=== PATIENT | female | born 1940 ===

== ENCOUNTER 2019-03-31 15:44 | Emergency (ER) | payer MEDICARE ==
[2019-03-31] MEDS ORDERED: Tramadol 25 mg PO STA (16:21)
[2019-03-31] MEDS ORDERED: Lidocaine 5% Patch TD STA (16:21)
--- NOTE | 2019-03-31 16:24 | C.PDOC ---
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 Patient reports that she accidentally slipped and fell. She states she hit the edge of her furniture with her right mid-back. Patient was non-compliant with walker when she tries to get up from chair to walk. Patient was immediately assisted up by family. 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 Patient describes the pain as localized and worse with movement. She denies any other injuries, head injury, headache, chest pain/impact, abdominal pain/impact, weakness, or numbness. 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 ACCID SLIP AND FALL, STRUCK EDGE OF FURNITURE R MID BACK. PT WAS NONCOMPLIANT W WALKER WHEN TRIED TO GET UP FROM CHAIR TO WALK. NO OTHER INJURY, IMMEDIATELY ASSISTED UP BY FAMILY. 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 PAIN LOCALIZED WORSE W MOVEMENT. EXAM MOD DIST NONTOXIC HEENT ATRAUM BACK +DIFF TEND R MID BACK NO FOCAL BONY TEND, CREPITUS SKIN ERYTHEMA MIN BRUISING R MID BACK INTACT NEURO INTACT LUNGS CTA B/L NO W/R/R REMAINDER NEG MDM BACK TRAUMA RO FX. PAIN RX, XRAY Time Seen by Provider: 03/31/19 16:18 Chief Complaint (Nursing): Trauma History Per: Patient, Family History/Exam Limitations: no limitations Onset/Duration Of Symptoms: Hrs Current Symptoms Are (Timing): Still Present Quality Of Discomfort: "Pain" Previous Symptoms: Chronic Pain (back pain ) Associated Symptoms: denies: New Weakness, New Numbness Exacerbating Factor(s): Movement Past Medical History Reviewed: Historical Data, Nursing Documentation, Vital Signs Vital Signs: Last Vital Signs Temp 97.7 F 03/31/19 15:54 Pulse 71 03/31/19 15:54 Resp 16 03/31/19 15:54 BP 167/91 H 03/31/19 15:54 Pulse Ox 100 03/31/19 15:54 Primary Care Provider: Shu Sharp - Medical History PMH: Back Problems, Kidney Stones, Pneumonia (3 years ago) Surgical History: No Surg Hx Family History: States: Unknown Family Hx - Social History Hx Tobacco Use: No Hx Alcohol Use: No Hx Substance Use: No - Immunization History Hx Tetanus Toxoid Vaccination: No Hx Influenza Vaccination: No Hx Pneumococcal Vaccination: No Review Of Systems Except As Marked, All Systems Reviewed And Found Negative. Musculoskeletal: Positive for: Back Pain Physical Exam - Physical Exam Appears: Non-toxic, Other (moderate distress) Skin: Normal Color, Warm, Dry, Other (erythema and minimal bruising to the right mid-back, skin intact) Head: Atraumatic, Normacephalic Eye(s): bilateral: Normal Inspection, PERRL, EOMI Neck: Normal ROM, Supple Chest: Symmetrical, No Deformity, No Tenderness Cardiovascular: Rhythm Regular, No Murmur Respiratory: No Accessory Muscle Use, No Rales, No Rhonchi, No Wheezing Gastrointestinal/Abdominal: Soft, No Tenderness Back: No Vertebral Tenderness, Paraspinal Tenderness (diffuse tenderness to the right mid-back, no focal bony tenderness or crepitus) Extremity: Capillary Refill (<2 seconds) Extremity: Bilateral: Atraumatic, Normal Color And Temperature, Normal ROM Pulses: Left Radial: Normal, Right Radial: Normal Neurological/Psych: Oriented x3, Normal Motor, Normal Sensation ED Course And Treatment O2 Sat by Pulse Oximetry: 100 (in RA) Pulse Ox Interpretation: Normal Progress Note: Bilateral Ribs and Chest X-ray ordered for patient. Patient given Flexeril PO, lidoderm, tylenol, and ultram. Progress - Re-Evaluation Re-evaluation Note: 03/31/19 17:45 D/W DR HASEEB INFANTE ARRANGED WILL EVAL TOMORROW Medical Decision Making Medical Decision Making: MDM Back trauma rule out fracture. X-ray ordered for patient. Patient given prescriptions for pain medication. Disposition Counseled Patient/Family Regarding: Studies Performed, Diagnosis, Need For Followup, Rx Given - Disposition Referrals: YOUR,PMD [Other] Disposition: HOME/ ROUTINE Disposition Time: 18:03 Condition: IMPROVED Additional Instructions: APPLY PATCH TO AFFECTED AREA. MAX 3 PATCHES AT A TIME. REMOVE PATCH 12 HOURS AFTER INITIAL APPLICATION. ALTERNATE 12 HOURS ON, 12 HOURS OFF. Prescriptions: Acetaminophen [Tylenol 325mg tab] 650 mg PO Q6 #30 tab Acetaminophen/Cod NO 4 [Tylenol/Cod 300 mg-60 mg] 1 tab PO Q4 PRN #20 tab PRN Reason: Pain, Moderate (4-7) Lidocaine 5% [Lidoderm] 2 patch TOP ONCE PRN #20 patch MDD 3 PATCHES PRN Reason: Pain, Moderate (4-7) Instructions: Rib Fracture (DC) Forms: [facility] ([place]) - Clinical Impression Clinical Impression: Rib fracture - PA / [employer] / Resident Statement MD/DO has reviewed & agrees with the documentation as recorded. (Smiley Denton) - Scribe Statement The provider has reviewed the documentation as recorded by the Scribe (Smiley Denton) All medical record entries made by the Scribe were at my direction and personally dictated by me. I have reviewed the chart and agree that the record accurately reflects my personal performance of the history, physical exam, medical decision making, and the department course for this patient. I have also personally directed, reviewed, and agree with the discharge instructions and disposition.
[2019-03-31] MEDS ORDERED: Lidocaine 5% Patch TD ONE ×2 (16:31→16:35)
[2019-03-31 17:30] VITALS: TEMP 98.5
[2019-03-31] MEDS ORDERED: Acetaminophen-Codeine 300/30 mg Tab PO STA (17:49)
--- NOTE | 2019-03-31 17:55 | RAD ---
Date of service: 03/31/2019 PROCEDURE: Radiographs of the chest and bilateral ribs HISTORY: trauma COMPARISON: Chest x-ray performed 01/13/18 and 12/30/15 TECHNIQUE: Frontal radiograph of the chest and multiple oblique radiographs of the bilateral ribs were obtained. FINDINGS: RIGHT RIBS: No appreciable displaced right rib fracture. LEFT RIBS: No appreciable displaced left rib fracture. LUNGS: No focal consolidation. Scattered probable calcified nodules. Please note that chest x-ray has limited sensitivity for the detection of pulmonary masses. PLEURA: No significant pleural effusion. CARDIOVASCULAR: Cardiomegaly. Atherosclerotic calcifications of the aorta. OTHER FINDINGS: 2.6 x 2.2 cm ovoid hyperdense likely calcified mass projects over medial lower left neck. Extensive multilevel degenerative changes of the spine. Scoliosis. Extensive osseous demineralization. IMPRESSION: No appreciable displaced fracture. Cardiomegaly. 2.6 x 2.2 cm ovoid hyperdense likely calcified mass projecting over the medial left lower neck. Consider CT for further evaluation if indicated. Additional findings as above.
[2019-03-31] MEDS ORDERED: Acetaminophen-Codeine 300/30 mg Tab PO ONE (17:56)
[2019-03-31 21:30] VITALS: BP 160/70; PULSE 74; RESP 20; O2SAT 98
== END 2019-03-31 21:39 | disposition home or self-care (01) ==
LOC: C.ER 15:44
DX: S22.31XA Fracture of one rib, right side, initial encounter for closed fracture (principal); W01.190A Fall on same level from slipping, tripping and stumbling with subsequent striking against furniture, initial encounter